=== PATIENT | male | born 1955 | race Caucasian/White ===

== ENCOUNTER 2021-09-23 16:58 | Emergency (ER) | payer MEDICARE, BC ==
[~2021-09-23] VITALS: Ht 180.3 cm; Wt 81.8 kg
[~2021-09-23 16:58] MED LIST: ASPIRIN 81M81 MG/TA2 PO; CIPRO 500MG TA500 MG PO; NICODERM C7 MG/PATCH TOP; NORCO 325 MG-51 TAB PO; PERCOCET 325 MG1 TA2 PO; PYRIDIUM 100MG100 MG PO; SENOKOT S 50 MG1 TAB PO; ZOCOR20 MG PO
[2021-09-23 17:24] VITALS: TEMP 98.1
[2021-09-23 18:20] LABS: BASO % 0.5 % (0.0-2.0); EOS # 0.1 K/mm3 (0.0-0.7); EOS % 0.8 % (0.0-4.0); GRAN # 4.7 K/mm3 (1.4-6.5); GRAN % 62.7 % (42.2-75.2); HEMATOCRIT 38.6 % (42.0-52.0); HEMOGLOBIN 13.1 g/dl (13.5-18.0); LYMPH % 26.7 % (20.0-51.0); MEAN CELL VOLUME 88 fl (80.0-100.0); MEAN CORPUSCULAR HEMOGLOBIN 30 pg (27-31); MEAN CORPUSCULAR HGB CONC 34 g/dl (33.0-37.0); MEAN PLATELET VOLUME 9.4 fl (7.4-10.4); MONO # 0.7 K/mm3 (0.1-0.6); PLATELET COUNT 220 K/mm3 (130-400); RED BLOOD COUNT 4.37 M/mm3 (4.20-5.60); REDCELL DISTRIBUTION WIDTH-CV 12.4 % (11.5-14.5)
[2021-09-23 18:24] LABS: COLLECTION METHOD CLEAN CATCH
[2021-09-23 18:33] LABS: PH 7 (5-8); SQUAMOUS EPITHELIAL None Seen /hpf (0-10); URINE APPEARANCE Clear (CLEAR/HAZY); URINE BACTERIA None Seen /hpf (NONE SEEN); URINE BILIRUBIN Negative (NEGATIVE); URINE BLOOD 1+ (NEGATIVE); URINE COLOR Yellow (YELLOW); URINE GLUCOSE Negative (NEGATIVE); URINE KETONE Negative (NEGATIVE); URINE LEUKOCYTE ESTERASE Negative (NEGATIVE); URINE NITRATE Negative (NEGATIVE); URINE PROTEIN(semi-quant) Negative (NEGATIVE); URINE RBC 0-2 /hpf (0-2); URINE UROBILINOGEN Negative (NEGATIVE)
[2021-09-23 18:40] LABS: ALBUMIN 3.4 gm/dL (3.4-4.8); BILIRUBIN,TOTAL 0.6 mg/dL (0.2-1.2); CALCIUM 8.7 mg/dL (8.4-10.2); CREATININE, serum 0.78 mg/dL (0.72-1.25); POTASSIUM 3.8 mmol/L (3.5-4.5); TOTAL PROTEIN 8.3 gm/dL (6.2-8.1)
[2021-09-23] MEDS ORDERED: NAPROSYN 2250 MG/TAB PO (21:19)
[2021-09-23] MEDS ORDERED: NEURONTIN300 MG/CAP PO (21:19)
[2021-09-23] MEDS ORDERED: PERCOCET 325 MG1 TA2 PO (21:19)
[2021-09-23 21:40] VITALS: BP 120/61; PULSE 80
== END 2021-09-23 22:00 | disposition home or self-care (01) ==
LOC: COL.ER 16:58
PROVIDERS: Emergency Medicine
DX: R10.32 Left lower quadrant pain (principal); R10.12 Left upper quadrant pain; Z98.890 Other specified postprocedural states
CPT/HCPCS: J1885; J2270; Q9967

== ENCOUNTER → 2021-09-30 | Outpatient (CLI) | payer MEDICARE, BC ==
[2021-09-30] VITALS (11 sets, daily range): BP systolic 119–146; BP diastolic 67–87; PULSE 75–89; TEMP 97.6
[~2021-09-30] VITALS: Ht 180.3 cm; Wt 78.2 kg
[~2021-09-30] MED LIST changes: +FLOMAX 0.40.4 MG/CAP PO; +LIPITOR 80MG80 MG PO; +NAPROSYN 2250 MG/TAB PO; +NEURONTIN300 MG/CAP PO; +NITROSTAT0.4 MG/TAB SL; +PRILOSEC 20MG20 MG PO; +TOPROL XL 25MG25 MG PO; +ZESTRIL2.5 MG PO
== END ==
LOC: COL.RAD 13:07
DX: K68.9 Other disorders of retroperitoneum (principal); R10.32 Left lower quadrant pain
CPT/HCPCS: J2250; J3010

== ENCOUNTER → 2021-10-20 | Outpatient (CLI) | payer MEDICARE, BC | LOC: COL.RAD 07:23 | DX: C67.2 Malignant neoplasm of lateral wall of bladder (principal); J43.9 Emphysema, unspecified; R91.8 Other nonspecific abnormal finding of lung field | CPT/HCPCS: Q9967 ==

== ENCOUNTER 2021-11-22 10:07 | Day surgery (SDC) | payer MEDICARE, BC ==
[~2021-11-22] VITALS: Ht 175.3 cm; Wt 77.3 kg
[2021-11-22 10:41] VITALS: BP 121/64; PULSE 96; TEMP 97.7
[2021-11-22] MEDS ORDERED: ZYLOPRIM 300MG300 MG PO (11:00)
[2021-11-22] MEDS ORDERED: ZOFRAN8 MG PO (11:01)
[2021-11-22] MEDS ORDERED: STOOL SOFTENER100 M2 PO (11:01)
[2021-11-22] MEDS ORDERED: NEULASTA O6 MG/0.6 M SQ (11:03)
[2021-11-22 12:20] VITALS: BP 117/70; PULSE 80; TEMP 97.2
--- NOTE | 2021-11-22 12:20 | NUR ---
PATIENT ARRIVES TO ROOM 6 VIA CART. AT BEDSIDE. VITAL SIGNS WNL. PATIENT REQUESTS ORANGE JUICE, WATER, AND CHOCOLATE PUDDING. DRESSING LOOKS GOOD, NO DRAINAGE OR BLEEDING. WILL CONTINUE TO MONITOR.
[2021-11-22 12:30] VITALS: BP 113/54; PULSE 69
--- NOTE | 2021-11-22 12:30 | NUR ---
PATIENT IS DOING WELL. DENIES ANY NAUSEA OR PAIN. TOLERATED EATING AND DRINKING WELL. STILL AT BEDSIDE. WILL CONTINUE TO MONITOR.
[2021-11-22 12:45] VITALS: BP 126/68; PULSE 82
--- NOTE | 2021-11-22 12:45 | NUR ---
PATIENT IS READY FOR DISCHARGE. IV REMOVED. WILL PRINT DISCHARGE PAPERWORK.
[2021-11-22 13:00] VITALS: BP 128/67; PULSE 82
--- NOTE | 2021-11-22 13:00 | NUR ---
DISCHARGE INSTRUCTIONS REVIEWED WITH PATIENT AND . LAST SET OF VITAL SIGNS WNL. WILL DISCHARGE ONCE PATIENT IS DRESSED.
--- NOTE | 2021-11-22 13:20 | NUR ---
Went through discharge instructions with patient and . Questions answered. Patient escorted to patient entrance via wheelchair with and was met at patient entrance by son. Patient then left in the care of his and son.
== END 2021-11-22 13:10 | disposition home or self-care (01) ==
LOC: SDCO 10:07
DX: C34.11 Malignant neoplasm of upper lobe, right bronchus or lung (principal); F17.210 Nicotine dependence, cigarettes, uncomplicated; K21.9 Gastro-esophageal reflux disease without esophagitis; I25.2 Old myocardial infarction; Z79.899 Other long term (current) drug therapy
CPT/HCPCS: C1788; J0690; J1100; J1644; J2370; J2405; J2704; J7120

== ENCOUNTER → 2021-12-14 | Outpatient (CLI) | payer MEDICARE, BC ==
[~2021-12-14] MED LIST changes: +NEULASTA O6 MG/0.6 M SQ; +STOOL SOFTENER100 M2 PO; +ZOFRAN8 MG PO; +ZYLOPRIM 300MG300 MG PO
== END ==
LOC: COL.RAD 08:02
DX: C34.11 Malignant neoplasm of upper lobe, right bronchus or lung (principal); J43.9 Emphysema, unspecified
CPT/HCPCS: Q9967

== ENCOUNTER 2022-02-18 20:07 | Inpatient (IN) | payer MEDICARE, BC ==
[~2022-02-18] VITALS: Ht 175.3 cm; Wt 76.4 kg
[2022-02-18 20:23] LABS: HEMOGLOBIN 10.2 g/dl (13.5-18.0); MEAN CELL VOLUME 93 fl (80.0-100.0); MEAN CORPUSCULAR HEMOGLOBIN 30 pg (27-31); MEAN CORPUSCULAR HGB CONC 32 g/dl (33.0-37.0); MEAN PLATELET VOLUME 8.9 fl (7.4-10.4); PLATELET COUNT 269 K/mm3 (130-400); RED BLOOD COUNT 3.45 M/mm3 (4.20-5.60); REDCELL DISTRIBUTION WIDTH-CV 15.7 % (11.5-14.5)
[2022-02-18 20:25] LABS: HEMATOCRIT 31.9 % (42.0-52.0)
[2022-02-18 20:31] LABS: COLLECTION METHOD CLEAN CATCH
[2022-02-18 20:40] LABS: BILIRUBIN,TOTAL 0.5 mg/dL (0.2-1.2); CALCIUM 9.3 mg/dL (8.4-10.2); CREATININE, serum 0.89 mg/dL (0.72-1.25); POTASSIUM 4.4 mmol/L (3.5-4.5); TOTAL PROTEIN 7.6 gm/dL (6.2-8.1)
[2022-02-18 20:48] LABS: PH 5.5 (5.0-8.5); SQUAMOUS EPITHELIAL None Seen /hpf (0-10); URINE APPEARANCE Clear (CLEAR/HAZY); URINE BACTERIA None Seen /hpf (NONE SEEN); URINE BLOOD Negative (NEGATIVE); URINE COLOR Yellow (YELLOW); URINE GLUCOSE Negative (NEGATIVE); URINE KETONE Negative (NEGATIVE); URINE NITRATE Negative (NEGATIVE); URINE PROTEIN(semi-quant) Negative (NEGATIVE); URINE RBC 0-2 /hpf (0-2)
[2022-02-18 21:08] LABS: BAND 17 % (0-10); HYPOCHROMIA 1+; LYMPHOCYTE 6 % (20.0-51.0); METAMYELOCYTE 1 % (0-0); NEUTROPHILS 76 % (42.0-75.2); PLATELET ESTIMATE NORMAL (NORMAL)
[2022-02-18] MEDS ORDERED: PREVACID 30MG30 M1 PO (22:44)
[2022-02-18] MEDS ORDERED: EC-NAPROSYN500 MG PO (22:45)
[2022-02-18] MEDS ORDERED: PERCOCET 325 MG1 TAB PO (22:46)
[2022-02-18 23:02] LABS: INR 1.1 (0.8-3.0); PROTHROMBIN TIME 12.7 SECONDS (9.7-12.8)
[2022-02-19 00:28] VITALS: BP 119/51; PULSE 113; TEMP 97.7
[2022-02-19 04:33] VITALS: BP 117/49; PULSE 104; TEMP 98.9
--- NOTE | 2022-02-19 05:00 | NUR ---
PT ARRIVED TO THE MEDICAL FLOOR AROUND 0030HRS TO ROOM 355. PT A&O X 4; VSS FOR PT WITH TACHY HR; O2 RA. PT COMPLAINED OF LLQ ABD PAIN. PT GIVEN PERCOCET FOR PAIN. PT FELT PERCOCET WAS EFFECTIVE FOR HIS PAIN. PT ALSO COMPLAINED OF NAUSEA. PT GIVEN A TRANSDERMAL PATCH FOR NAUSEA. PT DENIES CHEST PAIN, SOB, V,D OR DIZZINESS. ADMISSIONS ASSESSMENT AND MED REC COMLETE. PT AND ORIENTED TO ROOM AND HOSPITAL POLICY. ALL QUESTIONS AND CONCERNS ADDRESSED. PT EXPRESSED NO ADDITIONAL NEEDS AT THIS TIME. CALL LIGHT WITHIN REACH.
--- NOTE | 2022-02-19 06:02 | NUR ---
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 ht 177.8 cm wt 76.4 kg SCr 0.89 with estimated CrCl >60 ml/min half life 10.7 hours Plan: Patient recieved an initial loading dose of vancomycin 1500 mg x1 in the ED (19.6 mg/kg); will follow with a maintenance regimen of vancomycin 1250 mg q12h to target a goal trough of 15-20 mcg/ml. Will follow patient's renal function, micro data, and vancomycin levels as indicated to assess for any necessary changes to reigmen. Thank you for this dosing consult.
[2022-02-19 07:23] VITALS: BP 110/58; PULSE 99; TEMP 98.2
[2022-02-19 08:00] LABS: MEAN CELL VOLUME 92 fl (80.0-100.0); MEAN CORPUSCULAR HGB CONC 33 g/dl (33.0-37.0); MEAN PLATELET VOLUME 9.1 fl (7.4-10.4); PLATELET COUNT 199 K/mm3 (130-400); RED BLOOD COUNT 2.84 M/mm3 (4.20-5.60); REDCELL DISTRIBUTION WIDTH-CV 15.9 % (11.5-14.5)
[2022-02-19 08:05] LABS: HEMATOCRIT 26.1 % (42.0-52.0); HEMOGLOBIN 8.6 g/dl (13.5-18.0); MEAN CORPUSCULAR HEMOGLOBIN 30 pg (27-31)
[2022-02-19 08:32] LABS: ALBUMIN 2.4 gm/dL (3.4-4.8); BILIRUBIN,TOTAL 0.5 mg/dL (0.2-1.2); CALCIUM 8.4 mg/dL (8.4-10.2); CREATININE, serum 0.82 mg/dL (0.72-1.25); POTASSIUM 4.6 mmol/L (3.5-4.5); TOTAL PROTEIN 6.3 gm/dL (6.2-8.1)
[2022-02-19 10:19] LABS: BAND 1 % (0-10); EOSINOPHIL 1 % (0-4); LYMPHOCYTE 5 % (20.0-51.0); NEUTROPHILS 93 % (42.0-75.2)
[2022-02-19 10:20] LABS: HYPOCHROMIA 1+
[2022-02-19 10:21] LABS: ANISOCYTOSIS 1+; PLATELET ESTIMATE NORMAL (NORMAL)
[2022-02-19 12:12] VITALS: BP 111/56; PULSE 106; TEMP 97.7
--- NOTE | 2022-02-19 13:25 | NUR ---
String Studies Director rounds: String Studies Director visit attempted. Patient had a visitor. String Studies Director vist was declined.
[2022-02-19 15:37] VITALS: BP 112/65; PULSE 96; TEMP 98.1
[2022-02-19 21:10] VITALS: BP 119/64; PULSE 94; TEMP 98.6
[2022-02-20] VITALS (7 sets, daily range): BP systolic 109–123; BP diastolic 49–67; PULSE 87–100; TEMP 98–98.5
[2022-02-20 10:13] LABS: MEAN CELL VOLUME 90 fl (80.0-100.0); MEAN CORPUSCULAR HGB CONC 33 g/dl (33.0-37.0); MEAN PLATELET VOLUME 8.9 fl (7.4-10.4); PLATELET COUNT 142 K/mm3 (130-400); REDCELL DISTRIBUTION WIDTH-CV 14.9 % (11.5-14.5)
[2022-02-20 10:15] LABS: HEMATOCRIT 26.9 % (42.0-52.0); HEMOGLOBIN 8.9 g/dl (13.5-18.0); MEAN CORPUSCULAR HEMOGLOBIN 30 pg (27-31)
[2022-02-20 10:29] LABS: ALBUMIN 2.4 gm/dL (3.4-4.8); BILIRUBIN,TOTAL 0.8 mg/dL (0.2-1.2); CALCIUM 8.1 mg/dL (8.4-10.2); CREATININE, serum 0.75 mg/dL (0.72-1.25); POTASSIUM 4.4 mmol/L (3.5-4.5); TOTAL PROTEIN 6.1 gm/dL (6.2-8.1)
[2022-02-20 10:35] LABS: BAND 1 % (0-10); BASOPHIL 1 % (0-2); EOSINOPHIL 2 % (0-4); LYMPHOCYTE 12 % (20.0-51.0); NEUTROPHILS 84 % (42.0-75.2); PLATELET ESTIMATE NORMAL (NORMAL)
--- NOTE | 2022-02-20 11:30 | NUR ---
PATIENT VOICES INADEQUATE PAIN AND NAUSEA CONTROL DURING THE NIGTH. CHARGE NURSE MADE AWARE. SOME MED CHANGES MADE. PERCOCET GIVEN THIS AM AND THEN DOSE OF MORPHINE, PATIENT STATED PAIN CURRENTLY IS THE BEST IT HAS BEEN SINCE HE HAS ARRIVED. WILL CONT TO MONITOR AND PROVIDE PAIN AND NAUSEA CONTROL.
--- NOTE | 2022-02-20 11:45 | NUR ---
PER DAQUAN BECKER, THIS RN GAVE PT PO ZOFRAN TO HELP WITH NAUSEA PRIOR TO ORDERING LUNCH. WILL CONT TO MONITOR.
--- NOTE | 2022-02-20 13:45 | NUR ---
PATIENT VOICES PAIN IN CONTROL, NO NAUSEA, WAS ABLE TO KEEP HIS LUNCH DOWN.
--- NOTE | 2022-02-20 15:32 | NUR ---
[employer] Assembler met with patient and patient's , Paige to discuss discharge planning. Patient lives in [place] and sees Dr. Logan Sharp for primary care. Patient obtains medications from [facility] in [place] and also does not use any DME at home. Patient reports he is normally independent with ADLS. Patient does not have DPOA-HC and is not interested in completing one at this time. Patient plans to return home at time of discharge. Discharge Plan: Home
--- NOTE | 2022-02-20 17:30 | NUR ---
PATIENT RESTING IN BED. SOME NAUSE, MED GIVEN -SEE EMAR. PATIENT WITH NO VOMITTING. ABLE TO TOLERATE DIET AT THIS TIME. CALL LIGHT WITH IN REACH.
[2022-02-21 03:26] VITALS: BP 117/57; PULSE 90; TEMP 98.6
[2022-02-21 06:20] LABS: MEAN CELL VOLUME 92 fl (80.0-100.0); MEAN CORPUSCULAR HGB CONC 32 g/dl (33.0-37.0); MEAN PLATELET VOLUME 9.6 fl (7.4-10.4); PLATELET COUNT 123 K/mm3 (130-400); RED BLOOD COUNT 2.95 M/mm3 (4.20-5.60); REDCELL DISTRIBUTION WIDTH-CV 14.6 % (11.5-14.5)
[2022-02-21 06:28] LABS: CREATININE, serum 0.8 mg/dL (0.72-1.25); POTASSIUM 4.2 mmol/L (3.5-4.5)
[2022-02-21 06:40] LABS: HEMATOCRIT 27.2 % (42.0-52.0); HEMOGLOBIN 8.8 g/dl (13.5-18.0); MEAN CORPUSCULAR HEMOGLOBIN 30 pg (27-31)
[2022-02-21 07:35] LABS: BAND 3 % (0-10); EOSINOPHIL 3 % (0-4); LYMPHOCYTE 50 % (20.0-51.0); NEUTROPHILS 39 % (42.0-75.2)
[2022-02-21 07:36] VITALS: BP 116/75; PULSE 89; TEMP 97.5
[2022-02-21 07:36] LABS: DOHLE BODIES PRESENT
[2022-02-21 07:38] LABS: PLATELET ESTIMATE DECREASED (NORMAL)
[2022-02-21 07:39] LABS: HYPOCHROMIA 1+
[2022-02-21] MEDS ORDERED: ZOFRAN ODT8 MG PO (09:17)
--- NOTE | 2022-02-21 10:12 | NUR ---
Sponsorship Coordinator attended clinical rounds and patient to discharge home today. SW met with patient and reviewed IM form. Patient verbalized understanding and provided signature. SW placed form in chart and provided copy to patient. Discharge Plan: Home
[2022-02-21] MEDS ORDERED: PHENERGAN 25 TA25 MG PO (14:44)
== END 2022-02-21 11:41 | disposition home or self-care (01) | DRG 872 ==
LOC: COL.ER 20:07 → MEDICAL 23:01 → COL.ER 23:01 → MEDICAL 02-19 23:00
PROVIDERS: Emergency Medicine; Nurse Practitioner Family; Physician Assistant; ADMIT Hospitalist
DX: A41.9 Sepsis, unspecified organism (principal); E87.1 Hypo-osmolality and hyponatremia; E87.20 Acidosis, unspecified; D84.9 Immunodeficiency, unspecified; C34.11 Malignant neoplasm of upper lobe, right bronchus or lung; C76.2 Malignant neoplasm of abdomen; I10 Essential (primary) hypertension; E78.5 Hyperlipidemia, unspecified; E86.0 Dehydration; I25.10 Atherosclerotic heart disease of native coronary artery without angina pectoris; F17.210 Nicotine dependence, cigarettes, uncomplicated; D64.9 Anemia, unspecified; R65.20 Severe sepsis without septic shock; T45.1X5A Adverse effect of antineoplastic and immunosuppressive drugs, initial encounter; R19.09 Other intra-abdominal and pelvic swelling, mass and lump; Z79.82 Long term (current) use of aspirin; Z95.5 Presence of coronary angioplasty implant and graft; Z98.52 Vasectomy status; Y92.89 Other specified places as the place of occurrence of the external cause; Z85.51 Personal history of malignant neoplasm of bladder; Z23 Encounter for immunization
CPT/HCPCS: C9113; J1170; J1644; J1650; J2270; J2405; J2543; J2550; J2765; J3370; J7030; J7050; Q9967